=== PATIENT | female | born 1975 | race Asian ===

== ENCOUNTER 2019-08-21 08:10 | Outpatient (CLI) | payer OTHER ==
[2019-08-21] MEDS ORDERED: FERR-46 PO (08:34)
[2019-08-21] MEDS ORDERED: CALC1CAP8 PO (08:34)
[2019-08-21] MEDS ORDERED: ERGO500017 PO (08:34)
[2019-08-21] MEDS ORDERED: VITA1TAB19 PO (08:34)
[2019-08-21] MEDS ORDERED: MULT1TAB60 PO (08:34)
[2019-08-21] MEDS ORDERED: ZINC50CA PO (08:34)
[2019-08-21 09:08] LABS: BASOPHILS # (AUTO) 0.03 x10^3/uL (0-0.1); BASOPHILS % (AUTO) 1 % (0-1); EOSINOPHILS # (AUTO) 0.05 x10^3/uL (0-0.4); EOSINOPHILS % (AUTO) 1 % (1-7); LYMPHOCYTES # (AUTO) 1.65 x10^3/uL (1-3.4); LYMPHOCYTES % (AUTO) 29 % (22-44); MD NO; MEAN CORPUSCULAR HEMOGLOBIN 29.8 pg (27.0-34.8); MEAN CORPUSCULAR HGB CONC 32.7 g/dL (32.4-35.8); MEAN CORPUSCULAR VOLUME 91.2 fL (80-100); MEAN PLATELET VOLUME 8.5 fL (7.4-10.4); MONOCYTES # (AUTO) 0.34 x10^3/uL (0.2-0.8); MONOCYTES % (AUTO) 6 % (2-9); NEUTROPHILS # (AUTO) 3.63 x10^3/uL (1.8-6.8); NEUTROPHILS % (AUTO) 64 % (42-75); PLATELET COUNT 347 x10^3/uL (130-400); RED BLOOD COUNT 4.04 x10^6/uL (3.82-5.3); RED CELL DISTRIBUTION WIDTH 14.4 % (9.6-15.2)
== END 2019-08-21 23:59 | disposition home or self-care (01) ==
LOC: STAR 08:10
PROVIDERS: ATTEND Obstetrics & Gynecology
DX: Z01.818 Encounter for other preprocedural examination (principal); Z11.59 Encounter for screening for other viral diseases; N93.8 Other specified abnormal uterine and vaginal bleeding
CPT/HCPCS: 36415; 84703; 85025; U0001

== ENCOUNTER 2019-08-25 12:46 | Observation (INO) | payer OTHER ==
[~2019-08-25] VITALS: Ht 175.3 cm; Wt 126.9 kg
[~2019-08-25 12:46] MED LIST: BUPIVACAINE/PF-EPI 0.25% 1:200K ONE; CALC1CAP8 PO; ERGO500017 PO; FERR-46 PO; MULT-449 PO; VITA1TAB19 PO; ZINC50CA PO
[2019-08-25] MEDS ORDERED: LACTATED RINGERS 1,000 ML IV SCH (13:07)
[2019-08-25 13:10] VITALS: BP 121/87
[2019-08-25] MEDS ORDERED: CHLORHEXIDINE 15 ML UDC ONE (13:18)
[2019-08-25] MEDS ORDERED: EPHEDRINE 50 MG/ML, 1ML IM PRN (13:30)
[2019-08-25] MEDS ORDERED: METHOCARBAMOL 1,000 MG in DEXTROSE 5% 100 ML IV PRN (13:30)
[2019-08-25] MEDS ORDERED: LORazepam 2 MG/ML, 1ML IVPush PRN (13:30)
[2019-08-25] MEDS ORDERED: DIPHENHYDRAMINE 50 MG/ML, 1ML IVPush PRN (13:30)
[2019-08-25] MEDS ORDERED: HALOPERIDOL 5 MG/ML IV PRN (13:30)
[2019-08-25] MEDS ORDERED: MEPERIDINE/PF 25MG/0.5ML IVPush PRN (13:30)
[2019-08-25] MEDS ORDERED: hydrALAzine 20 MG/ML, 1ML IV PRN (13:30)
[2019-08-25] MEDS ORDERED: METOCLOPRAMIDE 5 MG/ML, 2ML IVPush PRN (13:30)
[2019-08-25] MEDS ORDERED: LABETALOL 5MG/ML, 20ML IV PRN (13:30)
[2019-08-25] MEDS ORDERED: ONDANSETRON 2MG/ML, 2ML IVPush PRN (13:30)
[2019-08-25] MEDS ORDERED: HYDROmorphone 1 MG/ML, 1ML INJ IVPush PRN (13:30)
[2019-08-25] MEDS ORDERED: MIDAZOLAM 1 MG/ML, 2ML IV PRN (13:30)
[2019-08-25] MEDS ORDERED: EPHEDRINE 50 MG/ML, 1ML IVPush PRN (13:30)
[2019-08-25] MEDS ORDERED: ALBUTEROL/IPRATROPIUM 2.5MG/0.5MG, 3 ML NPPB PRN (13:30)
[2019-08-25] MEDS ORDERED: KETOROLAC 30 MG/1 ML IVPush PRN (13:30)
[2019-08-25] MEDS ORDERED: HYDROcodone/APAP 7.5-325MG/15ML UDC PO PRN ×2 (13:30→19:30)
[2019-08-25] MEDS ORDERED: METOPROLOL 1 MG/ML, 5ML IV PRN (13:30)
[2019-08-25] MEDS ORDERED: CHLORHEXIDINE 15 ML UDC MM ONE (13:30)
[2019-08-25] MEDS ORDERED: FENTANYL PF 100 MCG/2ML IV PRN (13:30)
[2019-08-25] MEDS ORDERED: OXYcodone 5 MG/5 ML ORAL.SOL UDC PO PRN (13:30)
[2019-08-25] MEDS ORDERED: DEXAMETHASONE 4 MG/ML, 1ML ONE (13:31)
[2019-08-25] MEDS ORDERED: PROPOFOL 10 MG/ML, 20ML ONE (13:31)
[2019-08-25] MEDS ORDERED: ONDANSETRON 2MG/ML, 2ML ONE (13:31)
[2019-08-25] MEDS ORDERED: FENTANYL PF 250 MCG/5ML ONE (13:31)
[2019-08-25] MEDS ORDERED: CEFAZOLIN 1,000 MG ONE (13:31)
[2019-08-25] MEDS ORDERED: LIDOCAINE 2% 100MG/5ML SYRINGE ONE (13:31)
[2019-08-25] MEDS ORDERED: MIDAZOLAM 1 MG/ML, 2ML ONE (13:31)
[2019-08-25] MEDS ORDERED: GLYCOPYRROLATE 0.2MG/1ML, 5ML ONE (13:31)
[2019-08-25] MEDS ORDERED: ROCURONIUM 10MG/ML,5ML ONE (13:31)
[2019-08-25 14:56] LABS: HCG UR SG 1.021 (1.003-1.030)
[2019-08-25] MEDS ORDERED: INDIGO CARMINE 0.8%, 5ML ONE (16:38)
[2019-08-25] MEDS ORDERED: METOCLOPRAMIDE 5 MG/ML, 2ML ONE (16:51)
[2019-08-25] MEDS ORDERED: MEPERIDINE/PF 25MG/ML,1ML ONE (17:11)
[2019-08-25] MEDS ORDERED: OXYcodone 5 MG/5 ML ORAL.SOL UDC ONE (17:27)
[2019-08-25] MEDS ORDERED: HYDROmorphone 1 MG/ML, 1ML INJ ONE (17:52)
[2019-08-25] MEDS ORDERED: AAA-ALL IV'S IN NORMAL SALINE IV PRN (19:30)
[2019-08-25] MEDS ORDERED: KETOROLAC 30 MG/1 ML IV PRN (19:30)
[2019-08-25] MEDS ORDERED: PROMETHAZINE 25 MG/ML, 1ML IV ONE (19:30)
[2019-08-25] MEDS ORDERED: morphine SULFATE 10 MG/ML, 1ML IV PRN (19:30)
[2019-08-25] MEDS ORDERED: ONDANSETRON 2MG/ML, 2ML IV PRN (19:30)
[2019-08-25] MEDS ORDERED: IBUPROFEN 600 MG TABLET PO SCH (21:00)
== END 2019-08-25 22:00 | disposition home or self-care (01) ==
LOC: OR 12:46 → 4NE 18:33 → OR 18:44
PROVIDERS: ADMIT Obstetrics & Gynecology; ATTEND Obstetrics & Gynecology
DX: N93.9 Abnormal uterine and vaginal bleeding, unspecified (principal); N84.0 Polyp of corpus uteri; E66.01 Morbid (severe) obesity due to excess calories; D50.9 Iron deficiency anemia, unspecified; Z68.41 Body mass index [BMI] 40.0-44.9, adult; Z90.49 Acquired absence of other specified parts of digestive tract; N73.6 Female pelvic peritoneal adhesions (postinfective); Z79.899 Other long term (current) drug therapy
CPT/HCPCS: 58554; 81025; 88307; G0378; J0690; J1100; J1170; J2175; J2250; J2405; J2704; J2765; J2800; J3010; J7120